=== PATIENT | female | born 1995 | race Caucasian/White ===

== ENCOUNTER 2017-12-11 12:53 | Emergency (ER) | payer OTHER ==
[2017-12-11 13:05] VITALS: BP 136/76; PULSE 104; TEMP 98.1; BMI 35.5
--- NOTE | 2017-12-11 14:26 | PDOC ---
History of Present Illness - General Chief Complaint: Cold Symptoms Stated Complaint: CONGESTED Time Seen by Provider: 12/11/17 13:09 History Source: Patient Exam Limitations: No Limitations - History of Present Illness Initial Comments: 12/11/17 14:20 Patient is a 21-year-old female, denies any significant medical history currently on no medication presents with sudden onset of tactile fever, bodyaches, cough, nasal congestion, chest pain with coughing. Patient denies any back pain, no jaw pain, no arm pain. No shortness of breath. Did not take any medication prior to arrival. Upon arrival patient is sitting comfortably, afebrile, significant nasal congestion. Does have sore throat, no dysphagia. Past Medical History: Denies. Allergies: No known allergies Medications: None Family History: Non-contributory Social History: Denies smoking, alcohol use, or IVDU Review of Systems GENERAL/CONSTITUTIONAL: Fever and bodyaches. No weakness. No weight change. HEAD, EYES, EARS, NOSE AND THROAT: No change in vision. No ear pain or discharge. No sore throat. Nasal congestion . Sinus pressure CARDIOVASCULAR: No chest pain or shortness of breath. RESPIRATORY: No cough, wheezing, or hemoptysis. GASTROINTESTINAL: No nausea, vomiting, diarrhea or constipation. No rectal bleeding. GENITOURINARY: No dysuria, frequency, or change in urination. MUSCULOSKELETAL: No joint or muscle swelling or pain. No neck or back pain. SKIN : No rash or easy bruising. NEUROLOGIC: Frontal headache, vertigo, loss of consciousness, or loss of sensation. PSYCHIATRIC: No depression or anxiety. ENDOCRINE: No increased thirst. No abnormal weight change. HEMATOLOGIC/LYMPHATIC: No anemia, easy bleeding, or history of blood clots. ALLERGIC/IMMUNOLOGIC: No hives or skin allergy. No latex allergy. Physical Exam: GENERAL: The patient is awake, alert, and fully oriented, in no acute distress. EYES: Pupils equal, round and reactive to light, extraocular movements intact, sclera anicteric, conjunctiva clear. ENT: Ears normal, nares congested and edematous,, oropharynx clear without exudates. Moist mucous membranes. No uvula deviation NECK: Normal range of motion, supple without lymphadenopathy, JVD, or masses. LUNGS: Breath sounds equal, clear to auscultation bilaterally. No wheezes, and no crackles. HEART: Regular rate and rhythm, normal S1 and S2 without murmur, rub or gallop. ABDOMEN: Soft, nontender, normoactive bowel sounds. No guarding, no rebound. No masses. No bruising or abrasions MUSCULOSKELETAL: Normal range of motion, no edema. No clubbing or cyanosis. No cords, erythema, or tenderness. No CVA Tenderness with fist palpation. NEUROLOGICAL: Cranial nerves II through XII grossly intact. Normal speech, normal gait. SKIN: Warm, Dry, normal turgor, no rashes or lesions noted. 12/11/17 19:52 Past History - Past Medical History Allergies/Adverse Reactions: Allergies Allergy/AdvReac Type Severity Reaction Status Date / Time No Known Allergies Allergy Verified 12/11/17 13:05 Home Medications: Ambulatory Orders Amox-Tr/K Cl [Augmentin - 875Mg Tablet] 1 tab PO BID #14 tablet 12/11/17 COPD: No Other medical history: denies - Suicide/Smoking/Psychosocial Hx Smoking History: Never smoked Information on smoking cessation initiated: No Hx Alcohol Use: No Drug/Substance Use Hx: No Substance Use Type: None *Physical Exam - Vital Signs Last Vital Signs Temp Pulse Resp BP Pulse Ox 98.1 F 104 H 18 136/76 98 12/11/17 13:03 12/11/17 13:03 12/11/17 13:03 12/11/17 13:03 12/11/17 13:03 Medical Decision Making - Medical Decision Making 12/11/17 14:26 A/P: Patient is a 21-year-old female here with generalized bodyaches, fever, nasal congestion and cough which started suddenly yesterday. High suspicion for influenza patient also with sore throat will send rapid influenza and rapid strep. Patient is otherwise well-appearing, with significant nasal congestion. Rapid influenza and rapid strep are both negative, patient does have sinus pressure and pain will DC on Augmentin for sinusitis follow-up with PMD in 2 days if symptoms persist *DC/Admit/Observation/Transfer Diagnosis at time of Disposition: Sinusitis Qualifiers: Sinusitis location: frontal Chronicity: acute Recurrence: non-recurrent Qualified Code(s): J01.10 - Acute frontal sinusitis, unspecified - Discharge Dispostion Disposition: HOME Condition at time of disposition: Stable Admit: No - Prescriptions Prescriptions: Amox-Tr/K Cl [Augmentin - 875Mg Tablet] 1 tab PO BID #14 tablet - Referrals Referrals: Javi Coronel MD [Staff Physician] - - Patient Instructions Printed Discharge Instructions: Sinusitis (Alternative Therapy) Additional Instructions: Increase fluids to prevent dehydration Tylenol for headache Motrin for fever greater than 101.0 Please followup with primary care DrRuddy in 3 days if symptoms persist Return to emergency department any increased cough, fever, inability to drink or other concerns - Post Discharge Activity Forms/Work/School Notes: Back to Work
--- NOTE | 2017-12-12 23:41 | EKG ---
Test Reason : Blood Pressure : / mmHG Vent. Rate : 101 BPM Atrial Rate : 101 BPM P-R Int : 166 ms QRS Dur : 082 ms QT Int : 350 ms P-R-T Axes : 066 053 052 degrees QTc Int : 453 ms SINUS TACHYCARDIA POSSIBLE LEFT ATRIAL ENLARGEMENT BORDERLINE ECG NO PREVIOUS ECGS AVAILABLE Confirmed by ABENA BROCK, DAYANARA ([id number]) on 12/12/2017 11:41:21 PM Referred By: Confirmed By:DAYANARA KRAFT MD
== END 2017-12-11 15:10 | disposition home or self-care (01) ==
LOC: JERFT 12:53
DX: J01.10 Acute frontal sinusitis, unspecified (principal)
CPT/HCPCS: 87070; 87430; 87804; 93005; 93010; 99281-25

== ENCOUNTER 2019-01-07 17:00 | Emergency (ER) | payer OTHER ==
[2019-01-07 17:08] VITALS: BMI 83.2
--- NOTE | 2019-01-07 18:01 | PDOC ---
History of Present Illness - General Chief Complaint: Nausea/Vomiting Stated Complaint: BODY ACHES,ABD PAIN,DIZZINESS Time Seen by Provider: 01/07/19 17:49 Past History - Past Medical History Allergies/Adverse Reactions: Allergies Allergy/AdvReac Type Severity Reaction Status Date / Time No Known Allergies Allergy Verified 01/07/19 17:04 Home Medications: Ambulatory Orders Amox-Tr/K Cl [Augmentin - 875Mg Tablet] 1 tab PO BID #14 tablet 12/11/17 COPD: No - Immunization History Immunization Up to Date: Yes - Suicide/Smoking/Psychosocial Hx Smoking History: Never smoked Hx Alcohol Use: No Drug/Substance Use Hx: No Substance Use Type: None *Physical Exam - Vital Signs Last Vital Signs Temp Pulse Resp BP Pulse Ox 97.8 F 120 H 18 146/82 100 01/07/19 17:06 01/07/19 17:06 01/07/19 17:06 01/07/19 17:06 01/07/19 17:06 Medical Decision Making - Medical Decision Making 01/07/19 17:58 36 priscila
[2019-01-07 19:09] VITALS: BP 129/73; PULSE 104; TEMP 98.5
[2019-01-07] MEDS ORDERED: ONDANSETRON 4 MG/2 ML VIAL ONE (19:13)
[2019-01-07] MEDS ORDERED: LACTATED RINGERS SOLUTION 500 ML IV SCH ×2 (19:30→20:30)
[2019-01-07] MEDS ORDERED: ONDANSETRON 4 MG/2 ML VIAL IVPUSH ONE (19:30)
[2019-01-07] MEDS ORDERED: ceFAZolin SODIUM 1 GM VIAL ONE (22:18)
[2019-01-07 23:00] LABS: EPI CELLS 16.9 /HPF (0-5/HPF); HYALINE CASTS 8 /lpf (0-8); PH,URINE 6.5 (5.0-8.0); URINE APPEARANCE CLOUDY; URINE BACTERIA 581.6 /hpf (NEGATIVE); URINE BILIRUBIN NEGATIVE (NEGATIVE); URINE COLOR YELLOW; URINE GLUCOSE (UA) NEGATIVE (NEGATIVE); URINE KETONE NEGATIVE (NEGATIVE); URINE LEUK ESTERASE 1+ (NEGATIVE); URINE NITRITE NEGATIVE (NEGATIVE); URINE PROTEIN 1+ (NEGATIVE); URINE RBC 8 /hpf (0-4); URINE WBC 11 /hpf (0-5)
== END 2019-01-07 23:30 | disposition home or self-care (01) ==
LOC: JER 17:00
DX: O26.891 Other specified pregnancy related conditions, first trimester (principal); R10.9 Unspecified abdominal pain; R11.2 Nausea with vomiting, unspecified; Z3A.36 36 weeks gestation of pregnancy
CPT/HCPCS: 81003; 82962; 87086; 99281-25

== ENCOUNTER 2019-02-04 16:40 | Inpatient (IN) | payer OTHER ==
[2019-02-04] MEDS ORDERED: BUTORPHANOL TARTRATE 1 MG/ML VIAL IVPB ONE (17:27)
[2019-02-04] MEDS ORDERED: PROMETHAZINE HCL 25 MG/1 ML VIAL IVPUSH ONE (17:27)
[2019-02-04] MEDS ORDERED: DINOPROSTONE 10 MG VAGINAL SUPPOSITORY VG ONE ×2 (17:29→18:30)
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
[2019-02-04] MEDS ORDERED: ACETAMINOPHEN 325 MG TABLET (FP) PO ONE (18:00)
[2019-02-04] MEDS ORDERED: ACETAMINOPHEN 325 MG TABLET (FP) ONE (18:03)
[2019-02-04] MEDS ORDERED: TUBERCULIN PPD 5 TU/0.1ML SYRINGE (IN PATIENT USE ONLY) ID ONE (18:30)
[2019-02-04 18:42] VITALS: BMI 38.8
[2019-02-04 20:40] LABS: BASO % 0.2 % (0-2.0); EOS % 0.2 % (0-4.5); HEMATOCRIT 37.1 % (32.4-45.2); HEMOGLOBIN 11.9 GM/dL (10.7-15.3); LYMPH % 26.4 % (8-40); MCH 28.4 pg (25.7-33.7); MEAN CELL VOLUME 88.6 fl (80-96); MEAN PLT VOLUME 8.6 fl (7.5-11.1); MONO % 10.2 % (3.8-10.2); PLATELET COUNT 243 K/MM3 (134-434); RBC 4.19 M/mm3 (3.60-5.2); RDW 14.7 % (11.6-15.6); RETICULOCYTES 2.12 % (0.5-1.5); WHITE BLOOD COUNT 6.4 K/mm3 (4.0-10.0)
[2019-02-04 20:47] LABS: CALCIUM 8.9 mg/dL (8.5-10.1); CREATININE 0.6 mg/dL (0.55-1.3); POTASSIUM 4.1 mmol/L (3.5-5.1); URIC ACID 5.7 mg/dL (2.6-7.2)
[2019-02-04 20:51] LABS: INR 0.93 (0.83-1.09)
[2019-02-04 20:54] LABS: ACTIVATED PTT 29.2 SECONDS (25.2-36.5)
[2019-02-04] MEDS: ELECTROLYTE-148 SOLN 1,000 ML IV SCH (21:00)
[2019-02-04 23:40] LABS: URINE APPEARANCE CLEAR; URINE BILIRUBIN NEGATIVE (NEGATIVE); URINE GLUCOSE (UA) NEGATIVE (NEGATIVE)
[2019-02-04 23:41] LABS: PH,URINE 6.5 (5.0-8.0); URINE NITRITE NEGATIVE (NEGATIVE)
[2019-02-04 23:42] LABS: URINE LEUK ESTERASE 1+ (NEGATIVE)
[2019-02-04 23:45] LABS: URINE PROTEIN 2+ (NEGATIVE)
[2019-02-04 23:46] LABS: URINE KETONE TRACE (NEGATIVE)
[2019-02-05 00:15] LABS: URINE COLOR YELLOW
[2019-02-05] MEDS ORDERED: PROMETHAZINE HCL 25 MG/1 ML VIAL ONE (01:25)
[2019-02-05] MEDS ORDERED: BUTORPHANOL TARTRATE 2 MG/ML VIAL ONE (01:25)
[2019-02-05] MEDS ORDERED: FENTANYL/BUPIVACAINE/NS/PF - PCEA - 50 ML DISP.SYRIN EP ONE ×3 (03:52→12:43)
[2019-02-05] MEDS ORDERED: NALOXONE HCL 0.4 MG/ML VIAL IVPUSH PRN (04:36)
[2019-02-05] MEDS ORDERED: FENTANYL/BUPIVACAINE/NS/PF - PCEA - 50 ML DISP.SYRIN EP SCH (04:45)
[2019-02-05] MEDS ORDERED: OXYTOCIN 30 UNITS in 0.9% NS 30 UNIT/500 ML INFUS.BAG IVPB ONE (06:46)
[2019-02-05] MEDS: OXYTOCIN 30 UNITS in 0.9% NS 30 UNIT/500 ML INFUS.BAG IVPB SCH (06:50)
[2019-02-05] MEDS: FENTANYL/BUPIVACAINE/NS/PF - PCEA - 50 ML DISP.SYRIN EP SCH (06:56)
[2019-02-05] MEDS ORDERED: ACETAMINOPHEN 325 MG TABLET (FP) PO ONE (08:00)
[2019-02-05] MEDS ORDERED: ACETAMINOPHEN 325 MG TABLET (FP) ONE ×2 (08:04→17:07)
--- NOTE | 2019-02-05 13:01 | PN ---
Progress Note, Labor Vaginal Exam #1 Labor Exam Date: 02/05/19 Labor Exam Time: 12:59 Heart Rate (range): Cat I Dilatation: 9 Effacement (%): 100 Amniotic Membrane Status: Ruptured Presentation: Vertex/Position Station: 0 Remarks: Pt getting more uncomfortable AROM, clears Reassess in one hour to see if ready to start pushing Cat I Analisa Chahal MD
[2019-02-05] MEDS ORDERED: LIDOCAINE HCL 1% PRESERVATIVE FREE - 30ML VIAL ONE (13:30)
[2019-02-05] MEDS ORDERED: OXYTOCIN 20 UNITS in 0.9% NS 20 UNIT/1,000 ML INFUS.BAG IV ONE (13:32)
[2019-02-05] MEDS ORDERED: METHYLERGONOVINE MALEATE 0.2 MG/1 ML AMP IM PRN (14:56)
[2019-02-05] MEDS ORDERED: BENZOCAINE 28 GM HEMORRHOIDAL OINTMENT TP PRN (14:56)
[2019-02-05] MEDS ORDERED: WITCH HAZEL 50% (TUCKS) 40 PAD/JAR PAD TP PRN (14:56)
[2019-02-05] MEDS ORDERED: BENZOCAINE 20% 57 GM BOTTLE TP PRN (14:56)
[2019-02-05] MEDS ORDERED: BISACODYL 10 MG SUPP.RECT RC PRN (14:56)
[2019-02-05] MEDS: OXYTOCIN 20 UNITS in 0.9% NS 20 UNIT/1,000 ML INFUS.BAG IV SCH (15:00)
--- NOTE | 2019-02-05 15:00 | PN ---
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 Epidural anesthesia. Spontaneous delivery of anterior shoulder. Infant placed on maternal abdomen. Cord clamped and cut. Infant handed off to pediatric staff. Apgars 9/9. Weight pending. Spontaneous delivery of intact placenta with 3VC. Perineum inspected, 1st degree laceration identified and repaired with 2-0 chromic. Good hemostasis and cosmesis. Fundus firm. EBL 300. Falguni Chahal MD
[2019-02-05] MEDS ORDERED: IBUPROFEN 600 MG TABLET (FP) PO ONE (17:07)
[2019-02-05] MEDS: ACETAMINOPHEN 325 MG TABLET (FP) PO PRN ×2 (17:10→22:13)
[2019-02-05] MEDS: IBUPROFEN 600 MG TABLET (FP) PO PRN ×2 (17:10→22:13)
[2019-02-06 03:11] LABS: HBsAG SCREEN Negative (Negative)
--- NOTE | 2019-02-06 07:39 | PN ---
Post Progress Note Post Day: 1 Type of Delivery: Vital Signs: Vital Signs Temperature 97.7 F 02/06/19 06:23 Pulse Rate 92 H 02/06/19 06:23 Respiratory Rate 20 02/06/19 06:23 Blood Pressure 139/75 02/06/19 06:23 O2 Sat by Pulse Oximetry (%) 98 02/05/19 15:45 Uterus: Yes: Fundus @ umbilicus Abdomen/GI: Yes: Abdomen soft, Tolerating PO Lochia: Yes: Rubra Lochia, amount: Small Extremities: Yes: Calves non-tender Perineum: Yes: Laceration Activity: Ambulating (Breast/bottle feeding, No fevers/chills. Pain controlled) - Labs Labs: CBC WBC 6.4 K/mm3 (4.0-10.0) 02/04/19 19:20 RBC 4.19 M/mm3 (3.60-5.2) 02/04/19 19:20 Hgb 11.9 GM/dL (10.7-15.3) 02/04/19 19:20 Hct 37.1 % (32.4-45.2) 02/04/19 19:20 MCV 88.6 fl (80-96) 02/04/19 19:20 MCH 28.4 pg (25.7-33.7) 02/04/19 19:20 MCHC 32.0 g/dl (32.0-36.0) 02/04/19 19:20 RDW 14.7 % (11.6-15.6) 02/04/19 19:20 Plt Count 243 K/MM3 (134-434) 02/04/19 19:20 MPV 8.6 fl (7.5-11.1) 02/04/19 19:20 Absolute Neuts (auto) 4.0 K/mm3 (1.5-8.0) 02/04/19 19:20 Neutrophils % 63.0 % (42.8-82.8) 02/04/19 19:20 Lymphocytes % 26.4 % (8-40) 02/04/19 19:20 Monocytes % 10.2 % (3.8-10.2) 02/04/19 19:20 Eosinophils % 0.2 % (0-4.5) 02/04/19 19:20 Basophils % 0.2 % (0-2.0) 02/04/19 19:20 Nucleated RBC % 0 % (0-0) 02/04/19 19:20 Retic Count 2.12 % (0.5-1.5) H 02/04/19 19:20 Problem List - Problems (1) Gestational diabetes Code(s): O24.419 - GESTATIONAL DIABETES MELLITUS IN , UNSP CONTROL Assessment/Plan 23yo s/p , PPD#1 Routine PP care Labs pending Po pain control BPs reviewed, SBP 130's. Normal PIH labs on admission aside from 2+ proteinuria (which is longstanding for her throughout the ) Anticipate d/c to home PPD#2 Analisa Chahal MD
[2019-02-06 08:26] LABS: BASO % 0.2 % (0-2.0); EOS % 0.3 % (0-4.5); HEMATOCRIT 31.4 % (32.4-45.2); HEMOGLOBIN 10.2 GM/dL (10.7-15.3); MCH 28.6 pg (25.7-33.7); MCHC 32.4 g/dl (32.0-36.0); MEAN CELL VOLUME 88.2 fl (80-96); MEAN PLT VOLUME 8.4 fl (7.5-11.1); MONO % 8.4 % (3.8-10.2); NEUT % 68.1 % (42.8-82.8); PLATELET COUNT 225 K/MM3 (134-434); RBC 3.56 M/mm3 (3.60-5.2); RDW 14.8 % (11.6-15.6); WHITE BLOOD COUNT 11.4 K/mm3 (4.0-10.0)
[2019-02-06] MEDS: PRENATAL VITAMINS W/ FOLIC ACID TABLET (FP) PO SCH (09:27)
[2019-02-06] MEDS: FERROUS SO4 325 MG TABLET (FP) PO SCH (09:27)
[2019-02-06] MEDS: ACETAMINOPHEN 325 MG TABLET (FP) PO PRN ×2 (09:28→16:05)
[2019-02-06] MEDS: IBUPROFEN 600 MG TABLET (FP) PO PRN ×2 (09:28→16:04)
[2019-02-06] MEDS ORDERED: SENNOSIDES/DOCUSATE COMBO (SENNA PLUS) TABLET (UD) PO PRN (22:00)
--- NOTE | 2019-02-07 02:14 | DS ---
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 Vital Signs: Vital Signs Temperature 98.4 F 02/06/19 22:00 Pulse Rate 82 02/06/19 22:00 Respiratory Rate 18 02/06/19 22:00 Blood Pressure 133/92 02/06/19 22:00 O2 Sat by Pulse Oximetry (%) 98 02/05/19 15:45 Constitutional: Yes: Well Nourished Eyes: Yes: Conjunctiva Clear HENT: Yes: Atraumatic Neck: Yes: Supple Cardiovascular: Yes: Regular Rate and Rhythm Respiratory: Yes: Regular Gastrointestinal: Yes: Normal Bowel Sounds Renal/: Yes: WNL Pelvis: Yes: WNL External Genitalia: Yes: Normal Vaginal Exam: Yes: Normal ....Post : Yes: Uterus firm, Moderate lochia serosa Breast(s): Yes: WNL Musculoskeletal: Yes: WNL Extremities: Yes: WNL Neurological: Yes: Alert, Oriented ...Motor Strength: WNL Psychiatric: Yes: Alert, Oriented Labs: CBC, BMP 02/06/19 07:00 02/04/19 19:20 Delivery - Delivery Vaginal Delivery: Spontaneous Type of Anesthesia: Epidural Episiotomy/Laceration: Midline, 1st degree EBL (cc): 300 Delivery, Single - Stages of Labor Date 1st Stage Initiatied: 02/05/19 Time 1st Stage Initiated: 01:30 Date 2nd Stage Initiated: 02/05/19 Time 2nd Stage Initiated: 14:10 Date of Delivery: 02/05/19 Time of Delivery: 14:34 Time Placenta Delivered: 14:40 Placenta: Yes: Spontaneous - Condition of Infant Wiener Packer/Engineering Technologist Present: No Infant Gender: Female Weight: 8 lb 6 oz Position: OA Total Hours ROM (Hrs/Mins): 1hr 49mins - 1 Minute Total Score: 9 5 Minutes Total Score: 9 - [place] Feeding Plan Initial Plan: Elected not to breastfeed exclusively throughout hospitalization Discharge Summary Reason For Visit: INDUCTION OF LABOR Current Active Problems Gestational diabetes (Acute) Procedures: Principal: Normal spontaneous vaginal delivery Hospital Course: Routine care Condition: Stable - Instructions Diet, Activity, Other Instructions: Regular Diet Follow up in the office in 7-14 days for a blood pressure check Referrals: Falguni Chahal MD [Staff Physician] - Disposition: HOME - Home Medications Comprehensive Discharge Medication List: Ambulatory Orders Vitamins (Sjr) - 1 tab PO DAILY 02/04/19 Ibuprofen 600 mg PO Q6H PRN #30 tablet 02/05/19
[2019-02-07] MEDS: ELECTROLYTE-148 SOLN 1,000 ML IV SCH (04:46)
[2019-02-07] MEDS: OXYTOCIN 20 UNITS in 0.9% NS 20 UNIT/1,000 ML INFUS.BAG IV SCH (04:46)
[2019-02-07] MEDS: OXYTOCIN 30 UNITS in 0.9% NS 30 UNIT/500 ML INFUS.BAG IVPB SCH (04:47)
[2019-02-07] MEDS: FENTANYL/BUPIVACAINE/NS/PF - PCEA - 50 ML DISP.SYRIN EP SCH (04:47)
[2019-02-07] MEDS: FERROUS SO4 325 MG TABLET (FP) PO SCH (09:26)
[2019-02-07] MEDS: PRENATAL VITAMINS W/ FOLIC ACID TABLET (FP) PO SCH (09:27)
[2019-02-07 10:31] VITALS: BP 134/77; PULSE 96; TEMP 99
== END 2019-02-07 11:30 | disposition home or self-care (01) | DRG 560 ==
LOC: JLDR 16:40 → UNDOADMIN 17:23 → JLDR 17:23 → J3W 02-05 17:31
PROVIDERS: ADMIT Obstetrics & Gynecology; ATTEND Obstetrics & Gynecology
PROC: 3E033VJ Introduction of Other Hormone into Peripheral Vein, Percutaneous Approach (ICD-10-PCS; 2019-02-04)
PROC: 3E0P7VZ Introduction of Hormone into Female Reproductive, Via Natural or Artificial Opening (ICD-10-PCS; 2019-02-04)
PROC: 10E0XZZ Delivery of Products of Conception, External Approach (ICD-10-PCS; principal; 2019-02-05)
PROC: 3E0R3BZ Introduction of Anesthetic Agent into Spinal Canal, Percutaneous Approach (ICD-10-PCS; 2019-02-05)
PROC: 0HQ9XZZ Repair Perineum Skin, External Approach (ICD-10-PCS; 2019-02-05)
DX: O24.415 Gestational diabetes mellitus in pregnancy, controlled by oral hypoglycemic drugs (principal); O48.0 Post-term pregnancy; O70.0 First degree perineal laceration during delivery; O35.8XX0 Maternal care for other (suspected) fetal abnormality and damage, not applicable or unspecified; Z3A.40 40 weeks gestation of pregnancy; Z37.0 Single live birth
CPT/HCPCS: 36415; 59025; 59409; 80048; 81003; 82962; 82977; 83010; 84450; 84460; 84550; 85025; 85044; 85610; 85730; 86593; 86762; 86850; 86900; 86901; 87086; 87340

== ENCOUNTER 2020-06-14 22:37 | Emergency (ER) | payer OTHER ==
[2020-06-14 22:46] VITALS: BP 136/77; PULSE 81; TEMP 98.7; BMI 35.9
--- OUTSIDE RECORDS SUMMARY | 2020-06-14 22:58 | XMS ---
:1995 [facility] Providers Name Role Phone Kristy Unavailable Unavailable Kristy Unavailable Unavailable Kristy Unavailable Unavailable Kristy Unavailable Unavailable Kristy Unavailable Unavailable OYEKOLA PLATINUM SMITH Unavailable OYEKOLA PLATINUM SMITH Unavailable OYEKOLA PLATINUM SMITH Unavailable OYEKOLA PLATINUM SMITH Unavailable AGYEPONG PLATINUM SMITH Unavailable AGYEPONG PLATINUM SMITH Unavailable LUIZA PLATINUM SMITH Unavailable LUIZA PLATINUM SMITH Unavailable LUIZA PLATINUM SMITH Unavailable Re-disclosure Warning The records that you are about to access may contain information from federally- assisted alcohol or drug abuse programs. If such information is present, then the following federally mandated warning applies: This information has been disclosed to you from records protected by federal confidentiality rules (42 CFR part 2). The federal rules prohibit you from making any further disclosure of this information unless further disclosure is expressly permitted by the written consent of the person to whom it pertains or as otherwise permitted by 42 CFR part 2. A general authorization for the release of medical or other information is NOT sufficient for this purpose. The Federal rules restrict any use of the information to criminally investigate or prosecute any alcohol or drug abuse patient.The records that you are about to access may contain highly sensitive health information, the redisclosure of which is protected by Article 27-F of the [facility] Public Health law. If you continue you may haveaccess to information: Regarding HIV / AIDS; Provided by facilities licensed or operated by the [facility] Office of Mental Health; or Provided by the [facility] Office for People With Developmental Disabilities. If such information is present, then the following [facility] mandated warning applies: This information has been disclosed to you from confidential records which are protected by state law. State law prohibits you from making any further disclosure of this information without the specific written consent of the person to whom it pertains, or as otherwise permitted by law. Any unauthorized further disclosure in violation of state law may result in a fine or shelter sentence or both. A general authorization for the release of medical or other information is NOT sufficient authorization for further disclosure. Allergies and Adverse Reactions Type Description Substance Reaction Status Data Source(s ) Allergy to No Known Allergies No known GREENW AY ([facility] substance allergies [facility] ) Allergy to No Known Allergies No known GREENW AY ([facility] substance allergies [facility] ) Allergy to No Known Allergies No known GREENW AY ([facility] substance allergies [facility] ) Allergy to No Known Allergies No known GREENW AY ([facility] substance allergies [facility] ) Encounters Encounter Providers Location Date Indications Data Source(s) Outpatient< Attender: Jon dee [facility] 2019 (Chary Knott ID="[facility] 01:28[facility] iptionID0"> EDT - Center) *OUTREACH*< td><td>[facility] 2019 [facility] 11:59: PLATINUM SMITH</td><td 00 PM >[facility]</td> <td> 020</td><td ></td> Outpatient< Attender: Jon 03/16/ HepatitisRoutine Pre-emp loyment [facility] 2019 Screening ([place] ID="[facility] 10:00: ExaminationHepatitisRout [facility] erTypeDescr [facility] Center 00 AM Pre-employment Screening Health iptionID1"> EDT - ExaminationHepatitisRout [facility]) OFFICE 03/16/ Pre-employment Screening VISIT</td>< 2019 ExaminationObesityObesit besity td>[facility] 11:26: LUIZA 13 AM PLATINUM SMITH</td><td EDT >[facility]</td> <td> 020</td><td ><content ID="encount erDiagnosis ID1-0">Rout ine Pre-employm ent Screening Examination </content>, <content ID="encount erDiagnosis ID1-1">Hepa titis</cont ent>, <content ID="encount erDiagnosis ID1-2">Obes ity</conten t></td> Hepatitis Routine Pre-employment Screening Examina tion Hepatitis Routine Pre-employment Screening Examina tion Hepatitis Routine Pre-employment Screening Examina tion Obesity Obesity Obesity Outpatient<td Attender: Jon 09/24/2019 DISNEY ID="encounterTypeDescriptionID2">COMPLETE [facility] 12:00 :00 PM ([place] PHYSICAL EXAM</td><td>[facility] EST - Neighborhood PLATINUM SMITH</td><td>[facility] Center 09/24/2019 Health Center</td><td>09/24/2019</td><td></td> 01:20:2 4 PM Center) EST Outpatient<td Attender: Jon 09/10/2019 DISNEY ID="encounterTypeDescriptionID3">*No [facility] 04:51:00 P M ([place] Show*</td><td>[facility] EST - Neighborhood PLATINUM SMITH</td><td>[facility] PLATINUM SMITH Center 09/10/2019 Health Center</td><td>09/10/2019</td><td></td> 11:59:0 0 PM Center) EST Outpatient<td Attender: Jon 05/16/2019 DISNEY ID="encounterTypeDescriptionID4">*No [facility] 03:12:00 P M ([place] Show*</td><td>[facility] EDT - Neighborhood PLATINUM SMITH</td><td>[facility] PLATINUM SMITH Center 05/16/2019 Health Center</td><td>05/16/2019</td><td></td> 11:59:0 0 PM Center) EDT Outpatient<td Attender: Jon 04/21/2019 O ANIBAL ID="encounterTypeDescriptionID5">WALKINS</ [facility] 10:1 5:00 AM b ([place] td><td>KIKI KRISTY LA</td><td>[facility] EDT - e [facility] 04/21/2019 s Health Center</td><td>04/21/2019</td><td><content 01:3 2:34 PM i Center) ID="encounterDiagnosisID5-0">Obesity</cont EDT t ent></td> y O b e s i t y O b e s i t y O b e s i t y Obesity Obesity Obesity Obesity Outpatient<td Attender: Jon 04/17/2019 DISNEY ID="encounterTypeDescriptionID6">*OUTREACH*</td><td>[facility] 03:25:00 PM ([place] [facility] PLATINUM SMITH</td><td>[facility] ED T - Neighborhood Center</td><td>04/17/2019</td><td></td> PLATINUM SMITH Center 019 Health 11:59:00 PM Center) EDT Medications Medication Brand Start Product Dose Route Administrative Pharmacy St atus Indications Reaction Description Data Name Date Form Instructions Instructions Source(s) Prenat 06/18/ UNIT 1 complet ANIBAL Vitamin al 2017 ed Vitamin ([place] 27-0.8MG Vitami 12:00: Nikos Oral Tablet n 00 AM [place] 27-0.8 EDT od [facility] [place]) Oral Tablet Insurance Providers Payer name Policy type / Policy ID Covered Covered republican's Policy Plan Coverage type republican ID 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 MEDICAID [id number] SP [id number] [place] [facility] Individual 0 Self 0 Wheeler Policy [place] Individual 0 Self 0 Wheeler Policy Oswaldo Care Individual 0 Self 0 Wheeler Policy OSWALDO [id number] SP [id number] [facility] NON CAP [place] Individual 0 Self 0 Wheeler Policy [place] Individual 0 Self 0 Wheeler Policy [place] Individual 0 Self 0 Wheeler Policy [place] Individual 0 Self 0 Wheeler Policy [place] Individual 0 Self 0 Wheeler Policy [place] Individual 0 Self 0 Wheeler Policy [place] Individual 0 Self 0 Wheeler Policy [place] Care Individual 0 Self 0 Wheeler Policy [place] Individual 0 Self 0 Wheeler Policy MEDICAID [id number] SP [id number] [place] Individual 0 Self 0 Wheeler Policy [place] Individual 0 Self 0 Wheeler Policy Oswaldo Care Individual 0 Self 0 Wheeler Policy [place] [facility] [id number] S [id number] Essential Plan 3 4 Dental [id number] S [id number] [employer] Essential Plan 4 Medicaid [id number] Regular Clinic Visit [place] [facility] [id number] S [id number] HMO Essential Plan 3 Oswaldo Care Individual 0 Self 0 Wheeler Policy [place] [facility] Individual 0 Self 0 Wheeler Policy Oswaldo Care Individual 0 Self 0 Wheeler Policy [place] [facility] Individual 0 Self 0 Wheeler Policy [place] [facility] Individual 0 Self 0 Wheeler Policy Oswaldo Care Individual 0 Self 0 Wheeler Policy Oswaldo Care Individual 0 Self 0 Wheeler Policy Surgeries/Procedures Procedure Description Date Indications Data Source(s) Bmi documented BMI OUTSIDE NORMAL 03/16/2020 RADHA Y ([place] outside normal RANGE - NO F/U PLAN 12:00:[address] [facility], no [facility] ) follow-up plan documented, no reason given History of Eyes: History of Eyes: 04/21/2019 GREENWA Y ([facility] normal normal 12:00:00 AM [facility]) Date of last Date of last 04/21/2019 ANIBAL ([facility] menstruation menstruation 12:00:00 AM [facility] 04/07/2019 04/07/2019 [facility]) Bmi documented BMI OUTSIDE NORMAL 04/21/2019 GREENFAYE Y ([facility] outside normal RANGE - NO F/U PLAN 12:00:[address] [facility], [facility] ) follow-up plan documented, no reason given No prior serious No prior serious 04/16/2019 RADHA Y ([facility] illness illness 12:00:00 AM [facility]) Results ID Date Data Source [id number] 04/22/2020 04:08:48 PM EDT GREENFAYE Y ([place] [id number] [facility]) Name Value Range Interpretation Description Data Source(s ) Supporting Code Document(s ) No Results No Results No Results ANIBAL ([facility] Recorded For [facility]) ID Date Data Source [id number] 04/21/2020 01:29:10 PM EDT GREENFAYE Y ([place] [id number] [facility]) Name Value Range Interpretation Description Data Source(s ) Supporting Code Document(s ) No Results No Results No Results ANIBAL ([facility] Recorded For [facility]) ID Date Data Source [id number] 03/15/2020 09:12:00 AM EDT [facility] Name Value Range Interpretation Code Description Data Adrienne rce(s) Supporting Document(s ) SARS-COV-2 [facility] This lab was ordered by [facility] and reported by [employer]. Procedure Social History Code Duration Value Status Description Data Source(s ) Smoking 04/21/2019 Never smoked completed Never smoked DISNEY ( [facility] 01:33:59 PM EDT tobacco tobacco (finding) Ve rnon [facility] ([facility]) [facility]) Vital Signs ID Date Data Source UNK Name Value Range Interpretation Code Description Data Source(s) PhenX - pain, 0 0 ANIBAL ([facility] abdominal - type [facility]) protocol Patient is here to have a work form fill ed. Body surface area Derived from 2.20 m2 2.20 m2 DISNEY ([facility]) Patient is here to have a work form fill ed. Body mass index (BMI) 38.4 kg/m2 38.4 kg/m2 [facility] ([place] [[facility]] [facility]) Patient is here to have a work form fill ed. Body weight 245 [lb_av] 245 [lb_av] ANIBAL ([facility]) Patient is here to have a work form fill ed. Body height 67 [in_us] 67 [in_us] DISNEY ([facility]) Patient is here to have a work form fill ed. Body temperature 98.5 [degF] 98.5 [degF] [facility] AY ([facility]) Patient is here to have a work form fill ed. Heart rate rhythm 1 1 GREENTN Y ([facility]) Patient is here to have a work form fill ed. Heart rate 92 /min 92 /min DISNEY ([facility]) Patient is here to have a work form fill ed. Diastolic blood pressure 74 mm[Hg] 74 mm[Hg] DISNEY ([facility]) Patient is here to have a work form fill ed. Systolic blood pressure 115 mm[Hg] 115 mm[Hg] G REENWAY ([facility]) Patient is here to have a work form fill ed. PhenX - pain, abdominal - type and 0 0 ANIBAL ([facility] intensity protocol [facility]) pt is here for lab results Body surface area Derived from 2.14 m2 2.14 m2 DISNEY ([facility]) pt is here for lab results Body mass index (BMI) 35.7 kg/m2 35.7 [facility]2 [facility] [Ratio] [facility]) pt is here for lab results Body weight 227.8 [lb_av] 227.8 [lb_av] ELIZABETHWA Y ([facility]) pt is here for lab results Body height 67 [in_us] 67 [in_us] ANIBAL ([facility]) pt is here for lab results Body temperature 97.6 [degF] 97.6 [degF] [facility] ([facility]) pt is here for lab results Respiratory rate 18 /min 18 /min DISNEY ([facility]) pt is here for lab results Heart rate 87 /min 87 /min ANIBAL ([facility]) pt is here for lab results Diastolic blood pressure 77 mm[Hg] 77 mm[Hg] ANIBAL ([facility]) pt is here for lab results Systolic blood pressure 115 mm[Hg] 115 mm[Hg] G TALHA ([facility]) pt is here for lab results Patient Treatment Plan of Care Planned Activity Planned Date Details Description Data Source (s) Vitamin 06/18/2018 12:00:00 IRAIS SANTORO ([place] 27-0.8MG Oral Tablet AM EDT [facility])
--- NOTE | 2020-06-14 23:16 | PDOC ---
History of Present Illness - General Chief Complaint: Chest Pain Stated Complaint: CHEST PAIN Time Seen by Provider: 06/14/20 23:16 History Source: Patient Exam Limitations: Language Barrier ([employer] services used for this interaction) - History of Present Illness Initial Comments: 06/15/20 03:12 24-year-old female complaining of chest discomfort, patient reported syncopal episode yesterday and the day before. Patient is complaining of headache, neck pain and chest discomfort. Patient reports that with the syncopal episode she did strike her head denies incontinence of urine or bowel during the event denies numbness or tingling to the lower extremities. No past medical history Past History - Medical History Allergies/Adverse Reactions: Allergies Allergy/AdvReac Type Severity Reaction Status Date / Time No Known Allergies Allergy Verified 02/05/19 11:52 Home Medications: Ambulatory Orders Vitamins (Sjr) - 1 tab PO DAILY 02/04/19 Ibuprofen 600 mg PO Q6H PRN #30 tablet 02/05/19 Cephalexin Monohydrate [Keflex -] 500 mg PO BID #20 capsule 06/15/20 Asthma: No Cancer: No Cardiac Disorders: No COPD: No Diabetes: No HTN: No Seizures: No Thyroid Disease: No - Reproductive History Is Patient Now?: No - Immunization History Immunization Up to Date: Yes - Psycho-Social/Smoking History Smoking History: Current some day smoker Have you smoked in the past 12 months: No Number of Cigarettes Smoked Daily: 2 Information on smoking cessation initiated: No - Substance Abuse Hx (Audit-C & DAST Scrn) How often the patient has a drink containing alcohol: Monthly or less How often the patient has six or more drinks on one occasion: Less than monthly Score: In Men: 4 or > Positive; In Women: 3 or > Positive: 2 Screen Result (Pos requires Nsg. Audit-10AR): Negative In the last yr the pt used illegal drug/Rx for NonMed reason: No Score: Yes response is considered Positive: 0 Screen Result (Positive result requires Nsg. DAST-10): Negative Review of Systems - Review of Systems Able to Perform ROS?: Yes Is the patient limited Hebrew proficient: No Constitutional: No: Symptoms Reported, See HPI, Chills, Diaphoresis, Fever, Loss of Appetite, Malaise, Night Sweats, Weakness, Weight Stable, Unintentional Wgt. Loss, Unexplained wgt Loss, Other Cardiac (ROS): Yes: Syncope Neurological: Yes: Headache *Physical Exam - Vital Signs Last Vital Signs Temp Pulse Resp BP Pulse Ox 98.7 F 81 19 136/77 100 06/14/20 22:41 06/14/20 22:41 06/14/20 22:41 06/14/20 22:41 06/14/20 22:41 - Physical Exam General Appearance: Yes: Appropriately Dressed Respiratory/Chest: positive: Lungs Clear, Normal Breath Sounds Cardiovascular: positive: Regular Rhythm, Regular Rate Gastrointestinal/Abdominal: positive: Normal Bowel Sounds, Soft. 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 negative: Sensory Deficit Heart Score/ECG Review - History History: Slightly suspicious - Electrocardiogram EKG: Normal - Age Age: </= 45 - Risk Factors Based on the list above the patient has:: No risk factors known - Troponin Troponin: </= normal limit - Score Heart Score - Total: 0 - ECG Intrepretation Rhythm: Regular Rhythm Comment:: 06/15/20 03:09 NSR: 74 bpm ED Treatment Course - LABORATORY CBC & Chemistry Diagram: 06/15/20 00:50 06/15/20 00:50 - ADDITIONAL ORDERS Additional order review: Laboratory Results 06/15/20 06/15/20 01:13 00:50 Sodium 138 Potassium 3.9 Chloride 105 Carbon Dioxide 28 Anion Gap 6 L BUN 7.9 Creatinine 0.6 Est GFR (CKD-EPI)AfAm 146.83 Est GFR (CKD-EPI)NonAf 126.68 Random Glucose 86 Calcium 8.7 Magnesium 1.8 Total Bilirubin 0.6 AST 14 L ALT 19 Alkaline Phosphatase 83 Creatine Kinase 207 H Creatine Kinase Index 0.5 CK-MB (CK-2) 1.1 Troponin I < 0.02 Total Protein 7.5 Albumin 3.5 Urine Color Yellow Urine Appearance Clear Urine pH 5.5 Ur Specific Edwards 1.011 Urine Protein Negative Urine Glucose (UA) Negative Urine Ketones 1+ H Urine Blood 1+ H Urine Nitrite Negative Urine Bilirubin Negative Urine Urobilinogen 0.2 Ur Leukocyte Esterase 1+ H Urine WBC (Auto) 22 Urine RBC (Auto) 43 Urine Casts (Auto) 0 U Epithel Cells (Auto) 12 Urine Bacteria (Auto) 597 Urine HCG, Qual Negative 06/15/20 00:50 RBC 4.00 MCV 85.4 MCHC 32.6 RDW 14.8 MPV 8.3 Neutrophils % 45.9 D Lymphocytes % 42.8 H D Monocytes % 8.5 Eosinophils % 1.7 D Basophils % 1.1 D - RADIOLOGY Radiology Studies Ordered: Category Date Time Status CERVICAL SPINE CT W/O CONTR [CT] Stat CT Scan 06/15/20 00:[address] WITHOUT CONTRAST [CT] Stat CT Scan 06/15/20 00:24 Taken CHEST PA & LAT [RAD] Stat Radiology 06/15/20 00:23 Taken Medical Decision Making - Medical Decision Making A: syncope/ head injury; uti P: cbc cmp cardiac ua ucg head/ c-spine ct: cephalexin empirically treat for uti 06/15/20 03:08 head/ c-cpine: The ventricular system is midline and nondilated. The sulcal pattern is normal for the patient's age. There is no bleed, mass, extra-axial fluid collection or mass effect. No skull fracture or skull lesion is identified. The visualized paranasal sinuses and mastoid air cells are clear other than a large right maxilla sinus retention cyst or polyp. 06/15/20 03:28 06/15/20 03:29 Discharge - Discharge Information Problems reviewed: Yes Clinical Impression/Diagnosis: Syncope and collapse Head injury Qualifiers: Encounter type: initial encounter Qualified Code(s): S09.90XA - Unspecified injury of head, initial encounter UTI (urinary tract infection) Qualifiers: Urinary tract infection type: acute cystitis Hematuria presence: without hematuria Qualified Code(s): N30.00 - Acute cystitis without hematuria Disposition: HOME - Additional Discharge Information Prescriptions: Cephalexin Monohydrate [Keflex -] 500 mg PO BID #20 capsule - Follow up/Referral - Patient Discharge Instructions Patient Printed Discharge Instructions: DI for Closed Head Injury Additional Instructions: Drink plenty of fluids. Take cephalexin as per prescribed rest and relax as much as possible it is important that you follow-up with your primary doctor soon as possible return to the emergency room for any worsening symptoms - Post Discharge Activity Work/Back to School Note: Back to Work
[2020-06-15 00:59] LABS: BASO % 1.1 % (0-2.0); EOS % 1.7 % (0-4.5); HEMATOCRIT 34.2 % (32.4-45.2); HEMOGLOBIN 11.1 GM/dL (10.7-15.3); LYMPH % 42.8 % (8-40); MCH 27.8 pg (25.7-33.7); MCHC 32.6 g/dl (32.0-36.0); MEAN CELL VOLUME 85.4 fl (80-96); MEAN PLT VOLUME 8.3 fl (7.5-11.1); MONO % 8.5 % (3.8-10.2); NEUT % 45.9 % (42.8-82.8); PLATELET COUNT 316 K/MM3 (134-434); RDW 14.8 % (11.6-15.6); WHITE BLOOD COUNT 5.4 K/mm3 (4.0-10.0)
[2020-06-15 01:24] LABS: EPI CELLS 12 /uL (0-25.1); HCG,QUALITATIVE URINE Negative; HYALINE CASTS 0 /uL (0-3.1); PH,URINE 5.5 (5.0-8.0); URINE APPEARANCE CLEAR; URINE BACTERIA 597 /uL (0-1359); URINE BILIRUBIN NEGATIVE (NEGATIVE); URINE COLOR YELLOW; URINE GLUCOSE (UA) NEGATIVE (NEGATIVE); URINE KETONE 1+ (NEGATIVE); URINE LEUK ESTERASE 1+ (NEGATIVE); URINE NITRITE NEGATIVE (NEGATIVE); URINE PROTEIN NEGATIVE (NEGATIVE); URINE RBC 43 /uL (0-23.9); URINE UROBILINOGEN 0.2 mg/dL (0.2-1.0); URINE WBC 22 /uL (0-25.8)
[2020-06-15] MEDS ORDERED: ACETAMINOPHEN INJECTION 100 ML IVPB ONE (01:29)
[2020-06-15 01:30] LABS: ALBUMIN 3.5 g/dl (3.4-5.0); ALK PHOS 83 U/L (45-117); ANION GAP 6 MMOL/L (8-16); BILIRUBIN,TOTAL 0.6 mg/dL (0.2-1); BLOOD UREA NITROGEN 7.9 mg/dL (7-18); CALCIUM 8.7 mg/dL (8.5-10.1); CHLORIDE 105 mmol/L (98-107); CO2 28 mmol/L (21-32); CREATININE 0.6 mg/dL (0.55-1.3); GLUCOSE,RANDOM 86 mg/dL (74-106); MAGNESIUM 1.8 mg/dL (1.8-2.4); POTASSIUM 3.9 mmol/L (3.5-5.1); SGOT/AST 14 U/L (15-37); SGPT/ALT 19 U/L (13-61); SODIUM 138 mmol/L (136-145); TOT PROT 7.5 g/dl (6.4-8.2)
[2020-06-15] MEDS ORDERED: KETOROLAC TROMETHAMINE 30 MG/1 ML VIAL IVPUSH ONE (03:20)
[2020-06-15] MEDS ORDERED: KETOROLAC TROMETHAMINE 30 MG/1 ML VIAL ONE (03:23)
--- NOTE | 2020-06-15 10:03 | EKG ---
Test Reason : Blood Pressure : / mmHG Vent. Rate : 074 BPM Atrial Rate : 074 BPM P-R Int : 168 ms QRS Dur : 094 ms QT Int : 408 ms P-R-T Axes : 033 051 047 degrees QTc Int : 452 ms NORMAL SINUS RHYTHM NORMAL ECG WHEN COMPARED WITH ECG OF 11-DEC-2017 13:07, NO SIGNIFICANT CHANGE WAS FOUND Confirmed by MD Florez Daniel ([id number]) on 06/15/2020 10:03:15 AM Referred By: Confirmed By:Jere Florez MD
== END 2020-06-15 03:37 | disposition home or self-care (01) ==
LOC: JER 22:37
PROC: 3E0333Z Introduction of Anti-inflammatory into Peripheral Vein, Percutaneous Approach (ICD-10-PCS; principal; 2020-06-14)
DX: R55 Syncope and collapse (principal); S09.90XA Unspecified injury of head, initial encounter; N30.00 Acute cystitis without hematuria
CPT/HCPCS: 36415; 70450-TC; 71046-TC-FY; 72125-TC; 80053; 81003; 82550; 82553; 83735; 84484; 84703; 85025; 93005; 93010; 99285-25

== ENCOUNTER 2024-01-08 15:06 | Emergency (ER) | payer OTHER ==
[2024-01-08 15:21] VITALS: TEMP 97.9; BMI 26.6
[2024-01-08 16:55] LABS: BASO % 0.8 % (0-2.0); EOS % 0.7 % (0-4.5); HEMATOCRIT 26.6 % (32.4-45.2); HEMOGLOBIN 8.1 GM/dL (10.7-15.3); LYMPH % 25.8 % (8-40); MCH 21.5 pg (25.7-33.7); MCHC 30.5 g/dl (32.0-36.0); MEAN CELL VOLUME 70.3 fl (80-96); MEAN PLT VOLUME 7.5 fl (7.5-11.1); MONO % 12.3 % (3.8-10.2); NEUT % 60.4 % (42.8-82.8); PLATELET COUNT 361 10^3/uL (134-434); RBC 3.79 M/mm3 (3.60-5.2); RDW 18.2 % (11.6-15.6); WHITE BLOOD COUNT 5.9 K/mm3 (4.0-10.0)
[2024-01-08 17:14] LABS: POTASSIUM 3.9 mmol/L (3.5-5.1)
[2024-01-08 17:16] LABS: ALBUMIN 3.2 g/dl (3.4-5.0); BLOOD UREA NITROGEN 12.5 mg/dL (7-18); CALCIUM 8.4 mg/dL (8.5-10.1)
[2024-01-08 17:19] LABS: CREATININE 0.8 mg/dL (0.55-1.3)
[2024-01-08 17:21] LABS: BILIRUBIN,TOTAL 0.2 mg/dL (0.2-1)
[2024-01-08 17:27] LABS: ANISOCYTOSIS 1+; OVALOCYTE 1+
[2024-01-08] MEDS ORDERED: ALBUTEROL SO4 2.5/IPRATROPIUM 0.5 INH SOL 3 ML VIAL.NEB. NEB ONE (17:32)
[2024-01-08] MEDS ORDERED: ACETAMINOPHEN INJECTION 100 ML IVPB ONE (17:32)
[2024-01-08] MEDS: ALBUTEROL SO4 2.5/IPRATROPIUM 0.5 INH SOL 3 ML VIAL.NEB. NEB ONE (17:38)
[2024-01-08] MEDS: ACETAMINOPHEN 1000 MG/100 ML BAG IVPB ONE (17:38)
[2024-01-08 19:06] LABS: TOT PROT 7.4 g/dl (6.4-8.2)
[2024-01-08 20:38] VITALS: BP 117/81; PULSE 88; RESP 18
== END 2024-01-08 20:38 | disposition home or self-care (01) ==
LOC: JER 15:06
PROC: 3E033NZ Introduction of Analgesics, Hypnotics, Sedatives into Peripheral Vein, Percutaneous Approach (ICD-10-PCS; principal; 2024-01-08)
PROC: 3E0F7GC Introduction of Other Therapeutic Substance into Respiratory Tract, Via Natural or Artificial Opening (ICD-10-PCS; 2024-01-08)
DX: G89.29 Other chronic pain (principal); M54.50 Low back pain, unspecified; R06.02 Shortness of breath; R20.0 Anesthesia of skin; M79.602 Pain in left arm; R10.13 Epigastric pain; R07.9 Chest pain, unspecified
CPT/HCPCS: 36415; 71275-TC; 80053; 84484; 84702; 85025; 85379; 93005; 93010; 99285-25; J0131; Q9967

== ENCOUNTER 2024-03-25 09:48 | Emergency (ER) | payer OTHER ==
[2024-03-25 09:57] VITALS: BP 111/53; PULSE 78; RESP 20; TEMP 98.5; BMI 29.9
[2024-03-25 10:47] LABS: HEMATOCRIT 29.3 % (32.4-45.2); HEMOGLOBIN 8.8 GM/dL (10.7-15.3); MCH 20.9 pg (25.7-33.7); MEAN CELL VOLUME 69.6 fl (80-96); MEAN PLT VOLUME 7.2 fl (7.5-11.1); PLATELET COUNT 241 10^3/uL (134-434); RBC 4.21 M/mm3 (3.60-5.2); RDW 18.3 % (11.6-15.6); WHITE BLOOD COUNT 3.7 K/mm3 (4.0-10.0)
[2024-03-25 11:32] LABS: POTASSIUM 4.2 mmol/L (3.5-5.1)
[2024-03-25 11:35] LABS: CALCIUM 8.9 mg/dL (8.5-10.1)
[2024-03-25 11:36] LABS: ALBUMIN 3.7 g/dl (3.4-5.0); BLOOD UREA NITROGEN 10.3 mg/dL (7-18)
[2024-03-25 11:39] LABS: CREATININE 0.6 mg/dL (0.55-1.3)
[2024-03-25 11:41] LABS: BILIRUBIN,TOTAL 0.4 mg/dL (0.2-1)
== END 2024-03-25 11:34 | disposition home or self-care (01) ==
LOC: JER 09:48
DX: N64.4 Mastodynia (principal); R07.89 Other chest pain
CPT/HCPCS: 36415; 71046-TC-FY; 80053; 84484; 84703; 85027; 93005; 93010; 99285-25

== ENCOUNTER → 2024-04-16 | Day surgery (SDC) | payer OTHER | END | disposition home or self-care (01) | LOC: JRADUS-SUR 11:41 | PROVIDERS: ATTEND Registered Nurse | PROC: 0H9U3ZX Drainage of Left Breast, Percutaneous Approach, Diagnostic (ICD-10-PCS; principal; 2024-04-16) | DX: D24.2 Benign neoplasm of left breast (principal) | CPT/HCPCS: 19083; 87899; 88305-TC; 88341-TC; 88342-TC; A4648 ==

== ENCOUNTER 2024-05-07 04:10 | Day surgery (SDC) | payer OTHER ==
[2024-05-07 09:14] VITALS: RESP 16
[2024-05-07 09:38] VITALS: BMI 31.1
[2024-05-07] MEDS ORDERED: BUPIVACAINE HCL/PF 0.25% (2.5MG/ML) 10 ML VIAL ONE (11:06)
[2024-05-07] MEDS ORDERED: LIDOCAINE 1%/EPI 1:100000 (20 ML MULTI DOSE VIAL) ONE (11:06)
[2024-05-07] MEDS ORDERED: MIDAZOLAM HCL 2 MG/2 ML SINGLE DOSE VIAL ONE (11:44)
[2024-05-07] MEDS ORDERED: PROPOFOL 20 ML ONE (11:44)
[2024-05-07] MEDS: LIDOCAINE 1%/EPI 1:100000 (20 ML MULTI DOSE VIAL) IJ ONE ×2 (12:02)
[2024-05-07] MEDS ORDERED: BENZOIN/ALOE VERA/STORAX/TOLU 58 ML BOTTLE ONE (12:13)
[2024-05-07] MEDS: BUPIVACAINE HCL/PF 0.25% (2.5MG/ML) 10 ML VIAL IJ ONE ×2 (12:13)
[2024-05-07] MEDS ORDERED: ACETAMINOPHEN 500 MG TABLET (FP) PO ONE (12:35)
[2024-05-07] MEDS: ACETAMINOPHEN 325 MG TABLET (FP) PO ONE (12:35)
[2024-05-07] MEDS ORDERED: oxyCODONE HCL 5 MG TABLET PO PRN (12:35)
[2024-05-07] MEDS ORDERED: ACETAMINOPHEN 325 MG TABLET (FP) ONE (12:36)
[2024-05-07] MEDS ORDERED: LACTATED RINGERS SOLUTION 1,000 ML IV SCH (12:45)
[2024-05-07 15:49] VITALS: BP 110/75; PULSE 72; TEMP 98.5
== END 2024-05-07 14:55 | disposition home or self-care (01) ==
LOC: JASU-SURG 04:10
PROVIDERS: ATTEND Surgery Surgical Oncology
PROC: 0HBU0ZX Excision of Left Breast, Open Approach, Diagnostic (ICD-10-PCS; principal; 2024-05-07 11:00)
DX: D24.2 Benign neoplasm of left breast (principal)
CPT/HCPCS: 81025; 88307-TC